=== PATIENT | male | born 1980 | race Caucasian/White ===

== ENCOUNTER 2016-06-29 23:17 | Emergency (ER) | payer OTHER ==
[2016-06-29 23:32] LABS: MANUAL DIFF NEEDED? NO
[2016-06-29 23:34] LABS: BASO% 0.5 % (0.0-0.8); EOS# 0.09 X1000 (0.0-0.7); EOS% 1.6 % (0.0-10.0); HEMOGLOBIN 16.1 g/dL (14.0-18.0); LYMPH# 2.28 X1000 (1.2-3.4); LYMPH% 39.9 % (20.5-51.1); MCH 29.8 PG (27-31); MCV 85.2 FL (81-99); MONO# 0.72 X1000 (0.11-0.59); MONO% 12.6 % (1.7-9.3); NEUT% 45.4 % (42.2-75.2); PLT 240 X1000 (130-400)
[2016-06-29] MEDS ORDERED: PROTONIX PO ONE (23:40)
[2016-06-29] MEDS ORDERED: ULTRAM PO ONE (23:40)
[2016-06-29] MEDS ORDERED: G.I. COCKTAIL PO ONE (23:40)
[2016-06-29] MEDS ORDERED: ZOFRAN ODT PO ONE (23:42)
--- NOTE | 2016-06-29 23:48 | PROVIDER DOCUMENTATION ---
HPI-Abdominal Pain/GI Problem - General Chief Complaint: Abdominal Pain Stated Complaint: ABD PAIN Time Seen by Provider: 06/29/16 23:30 Source: patient Allergies/Adverse Reactions: Patient Allergies Allergy/AdvReac Type Severity Reaction Status Date / Time Penicillins Allergy RASH Verified 06/29/16 23:24 Home Medications: Home Medication List Medication Instructions Recorded Confirmed Last Taken Type No Home Medications 06/29/16 06/29/16 Unknown History - History of Present Illness-ABD Nature of Presenting Problems: 35 Y/O M presents to ED with Abdominal Pain. Pt states that the ABD pain began this evening, and slowly increased with intensity. Stated 3 nights ago same pain that lasted for 12 hours tried OTC meds with no relief finally slowly went away. Pt stated that the pain begin in the epigastric area and radiates to the generalized abdomen and to back. 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 And is also Nauseated. States Abnormal BM oily description. Abdominal Pain Onset Location: reports: epigastric Pain Radiation: reports: RUQ, LUQ, RLQ, LLQ, back Quality of Pain: reports: aching Severity in ED: reports: moderate, severe Onset/Duration: reports: this evening Timing: reports: still present Activities at Onset: reports: none Associated Symptoms: reports: back/neck pain, nausea. denies: fever/chills, vomiting Last BM: this evening Review of Systems - Adult - REVIEW OF SYSTEMS - ADULT Constitutional: denies: chills, fever Eyes: reports: no symptoms reported Ears, Nose, Mouth & Throat: reports: no symptoms reported Cardiovascular: reports: no symptoms reported Respiratory: reports: no symptoms reported Gastrointestinal: reports: abdominal pain, nausea. denies: diarrhea, vomiting Genitourinary: reports: no symptoms reported Musculoskeletal: reports: no symptoms reported Integumentary: reports: no symptoms reported Neurological: reports: no symptoms reported Psychiatric: reports: no symptoms reported Endocrine: reports: no symptoms reported Hematologic/Lymphatic: reports: no symptoms reported Allergic/Immunologic: reports: no symptoms reported All Other Systems: Reviewed and Negative Past History - Adult - PAST MEDICAL HISTORY-ADULT Review of Records: reports: Old Records Reviewed, Nursing Assessment Review, Medications Reviewed, Social history reviewed & non-contributory. Major Childhood Illnesses: reports: denies history Cardiovascular: reports: denies history Respiratory: reports: denies history Gastrointestinal: reports: denies history Obstetrical/Gynecological: reports: denies history Genitourinary: reports: denies history Musculoskeletal: reports: denies history Neurological: reports: denies history Endocrine/Immune: reports: denies history Other Conditions: reports: denies history - PRIOR SURGERIES/PROCEDURES Surgical/Procedure History: reports: hernia repair - FAMILY HISTORY Family History: reviewed, not pertinent - SOCIAL HISTORY Smoking: non-smoker Substance Use: none/never Alcohol Use Frequency: never Living Situation: family Physical Exam-General - PHYSICAL EXAM-ADULT Initial Vital Signs Reviewed: Yes - CONSTITUTIONAL General Appearance: appears well, alert, no apparent distress - EYES Eyes: PERRL/EOMI, pink conjunctivae, fundi clear, no AV nicking - HEAD, EARS, NOSE, MOUTH & THROAT HENMT: normocephalic/atraumatic, moist mucous membranes, normal ENT inspection, TMs normal, pharynx normal - NECK Neck: non-tender, full range of motion, supple, normal inspection - RESPIRATORY Respiratory: chest non-tender, lungs clear, normal breath sounds - CARDIOVASCULAR Cardiovascular: normal peripheral pulses, regular rate, rhythm - GASTROINTESTINAL (ABDOMEN) Abdominal Exam: normal bowel sounds, soft, tenderness (epigastric area) - LYMPHATIC Lymphatic: no adenopathy - MUSCULOSKELETAL Back Exam: normal inspection, no CVA tenderness, no vertebral tenderness Extremity: normal range of motion, non-tender, normal gait - SKIN Integumentary: normal color, normal turgor, warm/dry - NEUROLOGIC Neurologic: child psychologist II-XII nml as tested - PSYCHIATRIC Psych/Mental Status: normal mood/affect, normal thought content, normal thought process, oriented x 3 Progress - PLAN OF CARE/RESULTS Progress/Plan/Lab Results: Laboratory Tests 06/29/16 06/29/16 06/30/16 23:25 23:25 00:05 WBC 5.72 RBC 5.40 Hgb 16.1 Hct 46.0 MCV 85.2 MCH 29.8 MCHC 35.0 RDW Std Deviation 12.4 Plt Count 240 MPV 10.0 Immature Gran % (Auto) 0.0 Neut % (Auto) 45.4 Lymph % (Auto) 39.9 [place] % (Auto) 12.6 H Eos % (Auto) 1.6 Baso % (Auto) 0.5 Immature Gran # (Auto) 0.00 Neut # (Auto) 2.60 Lymph # (Auto) 2.28 [place] # (Auto) 0.72 H Eos # (Auto) 0.09 Baso # (Auto) 0.03 Sodium 140 Potassium 4.3 Chloride 101 Carbon Dioxide 26 Anion Gap 13 BUN 25 H Creatinine 0.9 Estimated GFR/1.73 m2 > 60 BUN/Creatinine Ratio 28 Glucose 114 H Calculated Osmolality 285 Calcium 9.5 Total Bilirubin 0.24 AST 18 ALT 18 Alkaline Phosphatase 56 Total Protein 7.4 Albumin 4.5 Globulin 2.9 Albumin/Globulin Ratio 1.6 Amylase 66 Lipase 26 Urine Source CLEAN CATCH Urine Color YELLOW Urine Turbidity HAZY Urine pH 8.0 Ur Specific [place] 1.025 Urine Protein TRACE A Ur Glucose (Stick) NEGATIVE Ur Ketones (Stick) NEGATIVE Urine Blood NEGATIVE Urine Nitrite NEGATIVE Urine Bilirubin NEGATIVE Urobilinogen Dipstick NORMAL Urine Leukocytes NEGATIVE Urine WBC (Auto) <10 Urine RBC (Auto) <10 U Epithel Cells (Auto) <10 Urine Bacteria (Auto) NEGATIVE Orders Category Date Time Status Saline Loc DIRECTED Care 06/29/16 23:22 Active NPO Diet 06/29/16 23:22 Active AMYLASE [CHEM] Stat Lab 06/29/16 23:25 Completed CBC WITH ELECTRONIC DIFF [HEME] Stat Lab 06/29/16 23:25 Completed COMPREHENSIVE METABOLIC PANEL [CHEM] Stat Lab 06/29/16 23:25 Completed LIPASE [CHEM] Stat Lab 06/29/16 23:25 Completed URINALYSIS W/POSS RFLX CULT [URINALYSIS] Stat Lab 06/30/16 00:05 Completed [place] Alk/Al&mg Hydrox [G.i. Cocktail] Med 06/29/16 23:40 Discontinued 30 ml PO NOW ONE Ondansetron Odt [Zofran Odt] Med 06/29/16 23:42 Discontinued 4 mg PO NOW ONE Pantoprazole [Protonix] Med 06/29/16 23:40 Discontinued 40 mg PO NOW ONE Tramadol [Ultram] Med 06/29/16 23:40 Discontinued 50 mg PO NOW ONE Vital Signs - 24 hr 06/29/16 23:19 Temperature 97.1 F L Pulse Rate 78 Respiratory 18 Rate Blood Pressure 158/91 O2 Sat by Pulse 100 Oximetry Departure - Departure Time of Disposition Order: 00:32 DIAGNOSIS: Gastroenteritis Abdominal pain Qualifiers: Abdominal location: epigastric Qualified Code(s): R10.13 - Epigastric pain Disposition: HOME 01 Certified Medical Emergency: Emergent Condition: Stable Additional Instructions: Follow up with gastro. ED Follow Up Instructions: You have been treated by a care provider in the Emergency Department. These instructions are being provided to you so you can have an understanding of how to care for yourself upon discharge. Upon discharge from the Emergency Department, you are responsible for making arrangements for follow-up care by a physician of your choice. Take all prescribed medications as directed. Return to the Emergency Department immediately for any new or worsening symptoms. You may call the Physician Referral phone number at [phone] to obtain a list of Physicians who are taking new patients. Referrals: None,PCP [Primary Care Provider] - Radha Bell MD [STAFF PHYSICIAN] - Attestation - Scribe Verification/Attestation Scribe:: Kelly Mosley Acting as Scribe for:: Aram Paulino Scribe documention review:: This chart was documented by a scribe and accurately reflects the service the provider performed and the decisions made by the provider.
[2016-06-29 23:52] LABS: AGAP 13; ALBUMIN 4.5 g/dL (3.5-5.0); ALKALINE PHOSPHATASE 56 U/L (32-122); AMYLASE 66 U/L (20-200); BUN 25 mg/dL (8-22); CALCIUM 9.5 mg/dL (8.8-10.2); CHLORIDE 101 mmol/L (98-107); COSMO 285; GOT 18 U/L (10-34); GPT 18 U/L (10-44); LIPASE 26 U/L (13-60); POTASSIUM 4.3 mmol/L (3.5-5.1); SODIUM 140 mmol/L (136-145); TCO2 26 mmol/L (25-35); TOTAL BILIRUBIN 0.24 mg/dL (0.20-1.00); TOTAL PROTEIN 7.4 g/dL (6.3-8.3)
[2016-06-30 00:20] LABS: URINE CULTURE NEEDED? NO; URINE MICRO REVIEW NEEDED? NO; URINE SOURCE CLEAN CATCH
[2016-06-30 00:22] LABS: BILIRUBIN URINE NEGATIVE (NEGATIVE); BLOOD URINE NEGATIVE (NEGATIVE); COLOR YELLOW; GLUCOSE URINE NEGATIVE (NEGATIVE); LEUKOCYTES URINE NEGATIVE (NEGATIVE); NITRITE URINE NEGATIVE (NEGATIVE); PROTEIN URINE TRACE mg/dL (NEGATIVE); SP GRAVITY URINE 1.025; TURBIDITY URINE HAZY (CLEAR); UROBILINOGEN URINE NORMAL (NORMAL)
[2016-06-30 00:23] LABS: UR EPITHELIAL CELLS <10 /HPF (<10); URINE BACTERIA NEGATIVE /HPF; URINE RBC <10 /HPF (<10); URINE WBC <10 /HPF (<10)
[2016-06-30] MEDS ORDERED: ZOFRAN ODT PO ONE (00:32)
[2016-06-30] MEDS ORDERED: PERCOCET-10 PO ONE (00:32)
[2016-06-30] MEDS ORDERED: DILAUDID IM ONE (00:32)
[2016-06-30 00:44] VITALS: BP 146/89
== END 2016-06-30 00:49 | disposition home or self-care (01) ==
LOC: ED 23:17
DX: K52.9 Noninfective gastroenteritis and colitis, unspecified (principal); R10.13 Epigastric pain; R10.11 Right upper quadrant pain; R10.12 Left upper quadrant pain; R10.31 Right lower quadrant pain; R10.32 Left lower quadrant pain; M54.9 Dorsalgia, unspecified; R11.0 Nausea
CPT/HCPCS: 80053; 81001; 82150; 83690; 85025; J1170